=== PATIENT | female | born 1935 | race Caucasian/White ===

== ENCOUNTER 2018-08-17 06:54 | Emergency (ER) | payer OTHER ==
[2018-08-17 07:06] VITALS: BP 170/82; PULSE 99; TEMP 97.9; BMI 29.2
[2018-08-17] MEDS ORDERED: CEPHALEXIN MONOHYDRATE 500 MG CAPSULE (UD) PO ONE (07:28)
--- NOTE | 2018-08-17 07:28 | PDOC ---
History of Present Illness - General Chief Complaint: Urinary Problem Stated Complaint: UTI Time Seen by Provider: 08/17/18 07:13 History Source: Patient, Old Records Exam Limitations: No Limitations - History of Present Illness Initial Comments: 08/17/18 07:22 Relatively healthy and high functioning 82-year-old female with history of bladder prolapse and hemorrhoids and UTI, most recently in February 2018 (seen here and treated successfully with Bactrim) presents now with urinary frequency, urgency, dysuria this morning. Patient awoke a couple of hours ago and began having symptoms, recognized them as her UTI symptoms and not typical bladder prolapse, so she presents for evaluation. No fevers or chills, no flank pain, no nausea or vomiting or abdominal pain. No bladder surgeries in the past. Past History - Past Medical History Allergies/Adverse Reactions: Allergies Allergy/AdvReac Type Severity Reaction Status Date / Time levofloxacin [From Levaquin] Allergy Verified 03/08/18 21:21 shellfish derived Allergy sweating, Verified 03/08/18 21:21 vomiting, hot feeling, flushing Home Medications: Ambulatory Orders Cephalexin Monohydrate [Keflex -] 500 mg PO BID #10 capsule 08/17/18 Phenazopyridine HCl [Azo Urinary Pain Relief] 190 mg PO ONCE 08/17/18 COPD: No Disorders: Yes (PROLAPSED BLADDER) - Surgical History Cholecystectomy: Yes - Immunization History Immunization Up to Date: Yes - Suicide/Smoking/Psychosocial Hx Smoking History: Never smoked Have you smoked in the past 12 months: No Hx Alcohol Use: No Drug/Substance Use Hx: No Substance Use Type: None Hx Substance Use Treatment: No Review of Systems - Review of Systems Constitutional: No: Chills, Fever, Night Sweats ABD/GI: No: Constipated, Diarrhea, Nausea, Vomiting : Yes: See HPI Neurological: No: Headache *Physical Exam - Vital Signs Last Vital Signs Temp Pulse Resp BP Pulse Ox 97.9 F 99 H 18 170/82 98 08/17/18 06:58 08/17/18 06:58 08/17/18 06:58 08/17/18 06:58 08/17/18 06:58 - Physical Exam Comments: 08/17/18 07:24 temp 97.9, heart rate 84 my examination GENERAL: The patient is awake, alert, and fully oriented, in no acute distress. HEAD: Normal with no signs of trauma. EYES: PERRL, EOMI, conjunctiva clear ENT: Moist mucous membranes. NECK: Normal range of motion, supple. LUNGS: Breath sounds equal, clear to auscultation bilaterally. No wheeze/ crackles. HEART: Regular rate and rhythm, normal S1 and S2 without murmur or rub. ABDOMEN: Soft/nontender/nondistended. BS wnl. No guarding or rebound. No palpable masses. No CVAT. EXTREMITIES: Normal range of motion. 2+ distal pulses. NEUROLOGICAL: Cranial nerves II through XII grossly intact. Normal speech, normal gait. PSYCH: Normal mood, normal affect. Medical Decision Making - Medical Decision Making 08/17/18 07:25 82-year-old female with UTI symptoms this morning, no evidence of Sirs or sepsis. Urinalysis and urine culture sent Based on microbiology results from February 2018, grew Escherichia coli sensitive to cephalosporins and Macrobid, actually resistant to Bactrim and Levaquin. Will treat with keflex and f/u cultures *DC/Admit/Observation/Transfer Diagnosis at time of Disposition: UTI (urinary tract infection) Qualifiers: Urinary tract infection type: acute cystitis Hematuria presence: without hematuria Qualified Code(s): N30.00 - Acute cystitis without hematuria - Discharge Dispostion Disposition: HOME Condition at time of disposition: Stable - Prescriptions Prescriptions: Cephalexin Monohydrate [Keflex -] 500 mg PO BID #10 capsule - Referrals Referrals: Dale Gale MD [Primary Care Provider] - - Patient Instructions Printed Discharge Instructions: DI for Urinary Tract Infection (UTI) Additional Instructions: Activity as tolerated. Stay hydrated. Tylenol 1000 mg every 8 hours and/or Azo over the counter as needed for pain. Your symptoms are consistent with a urinary tract infection. Take Cephalexin as prescribed as an antibiotic - the symptoms should get better in about 2 days. Continue your medications as previously prescribed by your physician. You should follow up with Dr. Gale as soon as possible regarding today's emergency department visit. Return to the emergency department for any new or concerning symptoms, particularly persistent or worsening symptoms, inability to urinate, fever/ chills, feeling very weak or confused. - Post Discharge Activity
[2018-08-17] MEDS ORDERED: CEPHALEXIN MONOHYDRATE 500 MG CAPSULE (UD) ONE (07:32)
[2018-08-17 07:36] LABS: PH,URINE 5.5 (4.5-8); URINE APPEARANCE Turbid; URINE BILIRUBIN Negative (NEGATIVE); URINE COLOR Red; URINE GLUCOSE (UA) 1+ (NEGATIVE); URINE KETONE Negative (NEGATIVE); URINE LEUK ESTERASE 3+ (NEGATIVE); URINE NITRITE Positive (NEGATIVE); URINE PROTEIN 3+ (NEGATIVE)
[2018-08-17 07:43] LABS: EPI CELLS FEW /HPF; URINE RBC >100 /hpf (0-3); URINE WBC 20-40 (0-5)
[2018-08-17 07:44] LABS: URINE BACTERIA NONE SEEN /hpf (NEGATIVE)
== END 2018-08-17 07:56 | disposition home or self-care (01) ==
LOC: FER 06:54
DX: Z88.1 Allergy status to other antibiotic agents (principal); Z91.013 Allergy to seafood
CPT/HCPCS: 81003; 81015; 87086; 99282-25

== ENCOUNTER 2019-02-26 13:40 | Emergency (ER) | payer OTHER ==
[2019-02-26 13:56] VITALS: BP 160/69; PULSE 70; TEMP 98.4; BMI 29.2
[2019-02-26] MEDS ORDERED: MECLIZINE HCL 25 MG TABLET (FP) PO ONE (14:20)
[2019-02-26] MEDS ORDERED: MECLIZINE HCL 12.5 MG TABLET ONE (14:23)
--- NOTE | 2019-02-26 14:55 | PDOC ---
Documentation entered by Rex Gallagher SCRIBE, acting as scribe for Emilio Cardona MD. Emilio Cardona MD: This documentation has been prepared by the canibElliott sidhu Daniel, SCRIBE, under my direction and personally reviewed by me in its entirety. I confirm that the documentation accurately reflects all work, treatment, procedures, and medical decision making performed by me. History of Present Illness - General Chief Complaint: Lightheaded Stated Complaint: DIZZY History Source: Patient Exam Limitations: No Limitations - History of Present Illness Initial Comments: 02/26/19 14:30 The patient is an 83 year old female with no past medical history here today for evaluation of vertigo. The patient reports that her symptoms began on (02/24/19) and describes her vertigo as the room spinning, feeling off balance, and worse with laying flat and bending over. She reports taking jyoti which made her feel better and notes no having no symptoms on thursday (). She states that her symptoms returned this morning after getting up and took another jyoti at 7 am. Patient reports having one similar previous episode a few years ago after getting over the flu. Patient denies headache. Denies fever, chills. Denies chest pain, shortness of breath. Denies nausea, vomiting, diarrhea, abdominal pain. Denies urinary symptoms. Denies neurologic symptoms. No visual changes, no speech changes. Allergies: levofloxacin, shellfish derived Social history: Denies tobacco, illicit drug, and alcohol use Surgical history: cholecystectomy PCP: Dale Gale Past History - Past Medical History Allergies/Adverse Reactions: Allergies Allergy/AdvReac Type Severity Reaction Status Date / Time levofloxacin [From Levaquin] Allergy Verified 03/08/18 21:21 shellfish derived Allergy sweating, Verified 03/08/18 21:21 vomiting, hot feeling, flushing Home Medications: Ambulatory Orders Meclizine HCl 25 mg PO Q6H PRN #24 tablet 02/26/19 COPD: No Disorders: Yes (PROLAPSED BLADDER) - Surgical History Cholecystectomy: Yes - Immunization History Immunization Up to Date: Yes - Suicide/Smoking/Psychosocial Hx Smoking History: Never smoked Have you smoked in the past 12 months: No Information on smoking cessation initiated: No Hx Alcohol Use: No Drug/Substance Use Hx: No Substance Use Type: None Hx Substance Use Treatment: No Review of Systems - Review of Systems Able to Perform ROS?: Yes Comments:: 02/26/19 14:30 CONSTITUTIONAL: Absent: Fever, Chills, Diaphoresis, Generalized Weakness, Malaise, Loss of Appetite HEENT: Absent: Rhinorrhea, Nasal Congestion, Throat Pain, Throat Swelling, Difficulty Swallowing, Mouth Swelling, Ear Pain, Eye Pain, Visual Changes CARDIOVASCULAR: Absent: Chest Pain, Syncope, Palpitations, Irregular Heart Rate, Lightheadedness , Peripheral Edema RESPIRATORY: Absent: Cough, Shortness of Breath, SOB with Exertion, Orthopnea, Wheezing, Stridor, Hemoptysis GASTROINTESTINAL: Absent: Abdominal pain, Abdominal Distension, Nausea, Vomiting, Diarrhea, Constipation, Melena, Hematochezia GENITOURINARY: Absent: Dysuria, Frequency, Urgency, Hesitancy, Flank Pain, Genital Pain MUSCULOSKELETAL: Absent: Myalgia, Arthralgia, Joint Swelling, Back pain, Neck Pain SKIN: Absent: Rash, Itching, Pallor HEMEATOLOGIC/IMMUNOLOGIC: Absent: Easy Bleeding, Easy Bruising, Lymphadenopathy, Frequent infections ENDOCRINE: Absent: Unexplained Weight Gain, Unexplained Weight Loss, Heat Intolerance, Cold Intolerance NEUROLOGIC: +vertigo. Absent: Headache, Focal Weakness, Paresthesias, Lightheadedness, Unsteady Gait, Seizure, Mental Status Changes, Incontinence PSYCHIATRIC: Absent: Anxiety, Depression *Physical Exam - Vital Signs Last Vital Signs Temp Pulse Resp BP Pulse Ox 98.4 F 70 20 160/69 95 02/26/19 13:41 02/26/19 13:41 02/26/19 13:41 02/26/19 13:41 02/26/19 13:41 - Physical Exam Comments: 02/26/19 14:30 GENERAL: The patient is awake, alert, and fully oriented, in no acute distress. HEAD: Normal with no signs of trauma. EYES: Pupils equal, round and reactive to light, extraocular movements intact, sclera anicteric, conjunctiva clear. ENT: Ears normal, nares patent, oropharynx clear without exudates. Moist mucous membranes. NECK: Normal range of motion, supple without lymphadenopathy, JVD, or masses. LUNGS: Breath sounds equal, clear to auscultation bilaterally. No wheezes, and no crackles. HEART: Regular rate and rhythm, normal S1 and S2 without murmur, rub or gallop. ABDOMEN: Soft, nontender, normoactive bowel sounds. No guarding, no rebound. No masses. EXTREMITIES: Normal range of motion, no edema. No clubbing or cyanosis. No cords , erythema, or tenderness. NEURO: Mental status: The patient is oriented x3. Cranial nerves: +lateral gaze nystagmus that extinguishes on both left and right gaze. No vertical nystagmus. Cranial nerves II through XII are intact. Motor: The upper extremities are 5 over 5 in all muscle groups. The lower extremities are 5 over 5 in all muscle groups. Sensation: Sensation is intact to light touch throughout. Cerebellar: Ghjbhq-qhssjv-hibc is normal in both upper extremities. Heel-knee- crockett is normal in both lower extremities. Reflexes: 2+ and symmetric in the upper and lower extremities. Gait: Normal. PSYCH: Normal mood, normal affect. SKIN: Warm, Dry, normal turgor, no rashes or lesions noted. Heart Score/ECG Review - ECG Impressions Comment:: 02/26/19 14:56 Twelve-lead EKG shows normal sinus rhythm at a rate of 63 bpm. The axis is normal. The intervals are normal. There are no acute ST elevations or depressions and no abnormal T waves. Impression: Normal 12-lead EKG ED Treatment Course - LABORATORY CBC & Chemistry Diagram: 02/26/19 14:36 02/26/19 14:36 - Medications Given in the ED: ED Medications Discontinued Medications Generic Name Dose Route Start Last Admin Trade Name Freq PRN Reason Stop Dose Admin Meclizine HCl 25 mg 02/26/19 14:20 02/26/19 14:25 Antivert - PO 02/26/19 14:21 25 mg ONCE ONE Administration Medical Decision Making - Medical Decision Making 02/26/19 15:38 Patient is an 83-year-old female with no significant past medical history. She comes in complaining of 3 days of vertigo and dizziness. The sensation is of room spinning. The symptoms get worse with various positions, lying flat is worse, and leaning forward and bending over is also worse. When she is sitting up and still, the symptoms feel better. She has no associated posterior circulation symptoms, no diplopia, no speech changes, no facial numbness or weakness. She took Jyoti with mild relief, but she now comes to the emergency department for further evaluation. On examination, there are no focal neurological deficits. Cerebellar function, cranial nerves all normal. She does have normal lateral gaze nystagmus which extinguishes. There is no vertical gaze nystagmus. Joseph-Hallpike maneuver positive for induction of vertigo, but no progressive nystagmus. Laboratory studies reviewed: Unremarkable. Normal CBC, normal chemistries, mildly elevated glucose, but nonfasting. Troponin is negative. Patient has no cardiac symptoms. Twelve-lead EKG shows normal sinus rhythm without any acute changes. Impression: Peripheral vertigo Plan: Antivert and rest, advised not to drive. Laboratory Results - last 24 hr 02/26/19 02/26/19 02/26/19 14:36 14:36 14:36 WBC 7.1 RBC 4.90 Hgb 14.0 Hct 42.7 MCV 87.1 MCH 28.5 MCHC 32.7 RDW 14.6 Plt Count 304 MPV 8.1 Absolute Neuts (auto) 4.7 Neutrophils % 65.8 Lymphocytes % 21.2 Monocytes % 8.8 Eosinophils % 3.3 Basophils % 0.9 Nucleated RBC % 0 Sodium 139 Potassium 3.8 Chloride 107 Carbon Dioxide 23 Anion Gap 9 BUN 15 Creatinine 0.7 Est GFR (CKD-EPI)AfAm 93.52 Est GFR (CKD-EPI)NonAf 80.69 Random Glucose 108 H Calcium 8.8 Total Bilirubin 0.6 AST 17 ALT 16 Alkaline Phosphatase 73 Troponin I < 0.03 Total Protein 6.7 Albumin 3.7 *DC/Admit/Observation/Transfer Diagnosis at time of Disposition: Peripheral vertigo Qualifiers: Laterality: unspecified laterality Qualified Code(s): H81.399 - Other peripheral vertigo, unspecified ear - Discharge Dispostion Disposition: HOME Condition at time of disposition: Stable Decision to Admit order: No - Prescriptions Prescriptions: Meclizine HCl 25 mg PO Q6H PRN #24 tablet PRN Reason: Vertigo - Referrals - Patient Instructions Printed Discharge Instructions: DI for Benign Paroxysmal Positional Vertigo Additional Instructions: You were evaluated today for vertigo. The vertigo gets worse with changes in position and all of the neurological testing was normal. The blood tests were also normal. This suggests a likely diagnosis of a middle ear problem. Take meclizine every 6 hours as needed to relieve the vertigo. Rest and avoid driving until the symptoms are resolved. I'll with her primary care physician next week. Typically, the symptoms of vertigo get better after a few days. Return to the emergency department for any severe or progressive symptoms. - Post Discharge Activity
[2019-02-26 15:03] LABS: ALBUMIN 3.7 g/dl (3.4-5.0); BILIRUBIN,TOTAL 0.6 mg/dl (0.2-1); CALCIUM 8.8 mg/dl (8.5-10); CREATININE 0.7 mg/dl (0.55-1.3); POTASSIUM 3.8 mmol/L (3.5-5.1); TOT PROT 6.7 g/dl (6.4-8.2)
[2019-02-26 15:34] LABS: BASO % 0.9 % (0-2.0); EOS % 3.3 % (0-4.5); HEMATOCRIT 42.7 % (32.4-45.2); LYMPH % 21.2 % (8-40); MCH 28.5 pg (25.7-33.7); MCHC 32.7 g/dl (32.0-36.0); MEAN CELL VOLUME 87.1 fl (80-96); MEAN PLT VOLUME 8.1 fl (7.5-11.1); MONO % 8.8 % (3.8-10.2); NEUT % 65.8 % (42.8-82.8); PLATELET COUNT 304 K/MM3 (134-434); RDW 14.6 % (11.6-15.6); WHITE BLOOD COUNT 7.1 K/mm3 (4.0-10.0)
--- NOTE | 2019-02-27 15:39 | EKG ---
Test Reason : Blood Pressure : / mmHG Vent. Rate : 063 BPM Atrial Rate : 063 BPM P-R Int : 186 ms QRS Dur : 076 ms QT Int : 416 ms P-R-T Axes : 090 -06 -09 degrees QTc Int : 425 ms NORMAL SINUS RHYTHM NONSPECIFIC ST ABNORMALITY ABNORMAL ECG NO PREVIOUS ECGS AVAILABLE Confirmed by JOHNATHON SOLARES MD ([id number]) on 02/27/2019 3:39:35 PM Referred By: LELA CUADRA Confirmed By:JOHNATHON SOLARES MD
== END 2019-02-26 15:48 | disposition home or self-care (01) ==
LOC: FER 13:40
DX: H81.399 Other peripheral vertigo, unspecified ear (principal)
CPT/HCPCS: 36415; 80053; 84484; 85025; 93005; 99283-25

== ENCOUNTER 2019-04-15 20:38 | Emergency (ER) | payer OTHER ==
[2019-04-15 20:52] VITALS: BP 189/54; PULSE 88; TEMP 98.4; BMI 29.2
[2019-04-15] MEDS ORDERED: ALPRAZolam 0.25 MG TABLET PO ONE (21:00)
[2019-04-15] MEDS ORDERED: ALPRAZolam 0.25 MG TABLET ONE (21:04)
--- NOTE | 2019-04-15 21:34 | PDOC ---
Documentation entered by Rex Gallagher SCRIBE, acting as scribe for Alina Amador MD. Alina Amador MD: This documentation has been prepared by the Elliott bosch Daniel, SCRIBE, under my direction and personally reviewed by me in its entirety. I confirm that the documentation accurately reflects all work, treatment, procedures, and medical decision making performed by me. History of Present Illness - General Chief Complaint: Psychiatric Stated Complaint: ANXIETY History Source: Patient Exam Limitations: No Limitations - History of Present Illness Initial Comments: 04/15/19 21:03 The patient is an 83 year old female with a past medical history of vertigo here today for evaluation of panic attack. The patient reports that she woke up Thursday night around 1 AM and felt like she couldnt catch her breath and felt claustrophobic. She reports that her shortness of breath has resolved but she still feels restless and claustrophobic. Patients daughter reports that the patient will pace, appears jittery, and will burst into tears abruptly. Patient states that she was able to sleep last night after drinking a glass of ron. Patient denies headache, lightheadedness. Denies fever, chills. Denies chest pain, shortness of breath. Denies nausea, vomiting, diarrhea, abdominal pain. Allergies: levofloxacin, shellfish Surgical history: Cholecystectomy PCP: Dale Gale Past History - Past Medical History Allergies/Adverse Reactions: Allergies Allergy/AdvReac Type Severity Reaction Status Date / Time levofloxacin [From Levaquin] Allergy Verified 03/08/18 21:21 shellfish derived Allergy sweating, Verified 03/08/18 21:21 vomiting, hot feeling, flushing Home Medications: Ambulatory Orders Meclizine HCl 25 mg PO Q6H PRN #24 tablet 02/26/19 Alprazolam [Xanax] 0.25 mg PO DAILY PRN #2 tablet MDD 1 04/15/19 COPD: No Disorders: Yes (PROLAPSED BLADDER) - Surgical History Cholecystectomy: Yes - Immunization History Immunization Up to Date: Yes - Suicide/Smoking/Psychosocial Hx Smoking History: Never smoked Have you smoked in the past 12 months: No Hx Alcohol Use: No Drug/Substance Use Hx: No Substance Use Type: None Hx Substance Use Treatment: No Review of Systems - Review of Systems Able to Perform ROS?: Yes Comments:: 04/15/19 21:04 GENERAL/CONSTITUTIONAL: +restlessness. No fever or chills. No weakness. HEAD, EYES, EARS, NOSE AND THROAT: No change in vision. No ear pain or discharge. No sore throat. CARDIOVASCULAR: No chest pain or shortness of breath. RESPIRATORY: No cough, wheezing, or hemoptysis. GASTROINTESTINAL: No nausea, vomiting, diarrhea or constipation. GENITOURINARY: No dysuria, frequency, or change in urination. MUSCULOSKELETAL: No joint or muscle swelling or pain. No neck or back pain. SKIN: No rash NEUROLOGIC: +claustrophobic. No headache, vertigo, loss of consciousness, or change in strength/sensation. ENDOCRINE: No increased thirst. No abnormal weight change. HEMATOLOGIC/LYMPHATIC: No anemia, easy bleeding, or history of blood clots. ALLERGIC/IMMUNOLOGIC: No hives or skin allergy. *Physical Exam - Vital Signs Last Vital Signs Temp Pulse Resp BP Pulse Ox 98.4 F 88 16 189/54 H 98 04/15/19 20:40 04/15/19 20:40 04/15/19 20:40 04/15/19 20:40 04/15/19 20:40 - Physical Exam Comments: 04/15/19 21:03 GENERAL: The patient is anxious appearing. HEAD: Normal EYES: PERRLA, EOMI, sclera anicteric, conjunctiva clear. ENT:Moist mucous membranes. NECK: Normal range of motion, supple LUNGS: Breath sounds equal, clear to auscultation bilaterally. No wheezes, and no crackles. HEART:Regular rate and rhythm, normal S1 and S2 ABDOMEN: Soft, nontender, normoactive bowel sounds. No guarding, no rebound. EXTREMITIES: Normal range of motion, no edema. NEUROLOGICAL: Cranial nerves II through XII grossly intact. Normal speech. No focal neurological deficits. MUSCULOSKELETAL: Back non-tender to palpation, no CVA tenderness SKIN: Warm, Dry, normal turgor, no rashes or lesions noted. 04/16/19 00:27 ED Treatment Course - LABORATORY CBC & Chemistry Diagram: 04/15/19 21:15 04/15/19 21:15 - Medications Given in the ED: ED Medications Discontinued Medications Generic Name Dose Route Start Last Admin Trade Name Freq PRN Reason Stop Dose Admin Alprazolam 0.25 mg 04/15/19 21:00 04/15/19 21:05 Xanax - PO 04/15/19 21:01 0.25 mg ONCE ONE Administration Medical Decision Making - Medical Decision Making 04/15/19 21:18 Ms Lindsey is a generally healthy 83 yo F who presents to the ER with a complaint of anxiety She states that since being diagnosed with vertigo, she has not felt right Over the past 2 days she had felt increasing anxiety, depression, claustrophobia No chest pain No shortness of breath No headache No weakness or numbness She feels better when she is on the move, walking around She also has noted that she is claustrophobic She has a follow up appointment on Thursday (in 2 days) Last night she had ron and felt better Pt refused EKG because she had one 1 month ago Examination reveals an anxious female otherwise, exam is nml Will do basic labs Will give xanax 0.25 Will plan to dc home 04/15/19 22:06 Laboratory Tests 04/15/19 04/15/19 04/15/19 21:15 21:15 21:15 Hgb 13.7 Hct 40.1 Creatine Kinase 105 Troponin I < 0.03 Pt is calm and relaxed will discharge to home Clinical Impression: anxiety, initial presentation *DC/Admit/Observation/Transfer Diagnosis at time of Disposition: Anxiety - Discharge Dispostion Disposition: HOME Condition at time of disposition: Stable Decision to Admit order: No - Prescriptions Prescriptions: Alprazolam [Xanax] 0.25 mg PO DAILY PRN #2 tablet MDD 1 PRN Reason: Anxiety - Referrals Referrals: Dale Gale MD [Primary Care Provider] - - Patient Instructions Printed Discharge Instructions: DI for Anxiety -- Adult Additional Instructions: Thank you for coming in to the ER today Please be sure to follow up with your primary care physician on Thursday as scheduled You can take the medications I have prescribed how they were prescribed Do not mix this medication with alcohol Return to the ER for any other concern or complaint - Post Discharge Activity
[2019-04-15 21:51] LABS: BASO % 0.6 % (0-2.0); EOS % 3.1 % (0-4.5); HEMATOCRIT 40.1 % (32.4-45.2); HEMOGLOBIN 13.7 GM/dl (10.7-15.3); LYMPH % 20.6 % (8-40); MCH 29.6 pg (25.7-33.7); MCHC 34.1 g/dl (32.0-36.0); MEAN CELL VOLUME 86.8 fl (80-96); MEAN PLT VOLUME 8.3 fl (7.5-11.1); MONO % 8.8 % (3.8-10.2); NEUT % 66.9 % (42.8-82.8); PLATELET COUNT 405 K/MM3 (134-434); RBC 4.62 M/mm3 (3.60-5.2); RDW 13.4 % (11.6-15.6); WHITE BLOOD COUNT 9.8 K/mm3 (4.0-10.8)
[2019-04-15 21:57] LABS: BILIRUBIN,TOTAL 0.8 mg/dl (0.2-1); CALCIUM 9.5 mg/dl (8.5-10); CREATININE 0.7 mg/dl (0.55-1.3); POTASSIUM 3.6 mmol/L (3.5-5.1); TOT PROT 6.9 g/dl (6.4-8.2)
== END 2019-04-15 22:12 | disposition home or self-care (01) ==
LOC: FER 20:38
DX: F41.9 Anxiety disorder, unspecified (principal)
CPT/HCPCS: 36415; 80053; 82550; 84484; 85025; 99282-25

== ENCOUNTER 2020-10-17 10:31 | Emergency (ER) | payer OTHER | END 2020-10-17 11:54 | disposition home or self-care (01) | LOC: JVIRT 10:31 | DX: Z20.822 Contact with and (suspected) exposure to COVID-19 (principal) | CPT/HCPCS: C9803; G2012-GT; U0003 ==